=== PATIENT | male | born 1945 | race Caucasian/White ===

== ENCOUNTER → 2016-11-22 | Outpatient (CLI) | payer MEDICARE ==
[~2016-11-22] MED LIST: REGADENOSON 0.4 MG/5 ML SYRINGE IV ONE
--- NOTE | 2016-11-22 11:29 | EST ---
DATE OF SERVICE: 11/22/2016 AGE: 71Y SEX: M HT: 5'8" WT: 212 lbs. Lexiscan Cardiolite Stress Test *Heart Rate Blood Pressure *Rest: 67 Rest: 142/85 * *Max. Achieved: 90 Maximum BP: 150/75 85% PMHR: - 100% PMHR: - *METS: - INDICATIONS: Pre-surgical clearance. MEDICATIONS: Donepezil, Cialis. STRESS DATA: Pretesting physical examination showed a heart rate of 57, blood pressure is 142/85 mmHg. Baseline EKG showed sinus rhythm with a right bundle branch block; 0.4 mg of Lexiscan was given to patient over ( ) protocol. The max heart rate was 90 beats per minute and maximum pressure was 150/75 mmHg. Clinically, the did not have any symptoms and the EKG did not show any significant ST or T-wave abnormalities consistent with ischemia. CONCLUSION: 1. Nondiagnostic electrocardiogram stress testing in response to Lexiscan. 2. Please followup on the Cardiology portion of separate report from Radiology Department.
--- NOTE | 2016-11-22 12:08 | NM ---
EXAMINATION TYPE: NM stress Lexiscan cardiolite DATE OF EXAM: 11/22/2016 11:53 AM COMPARISON: NONE HISTORY: TECHNIQUE: After the intravenous administration of 10 mCi Tc 99m Sestamibi - Cardiolite resting SPEC T images acquired 45 minutes post injection. The patient received 0.4mg Lexiscan, 27.4 mCi Tc 99m Sestamibi - Stress images obtained [address] injection FINDINGS: There is thinning of the inferior wall of the left ventricle. This may be secondary to diap hragmatic attenuation or previous nontransmural infarct. There is no convincing inducible ischemic ch elicia. Ejection fraction is normal at 60%. IMPRESSION: I DO NOT SEE CONVINCING EVIDENCE OF INDUCIBLE ISCHEMIC CHANGE AT THIS TIME.
== END | disposition home or self-care (01) ==
LOC: RADNMMAIN 09:12
PROVIDERS: ATTEND Internal Medicine
DX: Z01.818 Encounter for other preprocedural examination (principal); I71.4 Abdominal aortic aneurysm, without rupture
CPT/HCPCS: 93017; 78452; A9500; J2785

== ENCOUNTER 2019-06-11 10:46 | Inpatient (IN) | payer MEDICARE ==
--- NOTE | 2019-06-11 11:29 | ED ---
General Adult HPI - General Chief complaint: Neuro Symptoms/Deficit Stated complaint: Fall, weakness Time Seen by Provider: 06/11/19 10:49 Source: patient, family, RN notes reviewed, old records reviewed (Records reviewed from [facility] that are somewhat limited. Partial blood work is reviewed. Results of computed tomography scan of the brain and cervical spine and chest x-ray are reviewed.) Mode of arrival: ambulatory Limitations: altered mental status - History of Present Illness Initial comments: Patient is a pleasant 73-year-old male presenting to the emergency Department as a transfer from [facility]. Patient does have mentioned with increased weakness and falls. Patient was evaluated there and he did speak to the admitting physician who recommended patient be transferred here for neurology evaluation. Patient is only oriented to self but very limited history. Family arrived shortly after and states patient has been aggressively weak and falling more. Patient is also been having shaking and more confused. Patient is reportedly on multiple medications and the question of medications could be causing some of the symptoms. - Related Data Home Medications Medication Instructions Recorded Confirmed Acetaminophen Tab [Tylenol Tab] 650 mg PO Q4H PRN 06/11/19 06/11/19 Cholecalciferol (Vitamin D3) 2,000 unit PO DAILY 06/11/19 06/11/19 [Vitamin D3] Cyanocobalamin (Vitamin B-12) 1,000 mcg PO DAILY 06/11/19 06/11/19 [Vitamin B-12] Divalproex Sodium [Depakote 250 mg PO BID 06/11/19 06/11/19 Sprinkle] Docusate [Colace] 100 mg PO BID 06/11/19 06/11/19 Haloperidol Oral Soln [Haldol Oral 2 - 4 mg PO DAILY 06/11/19 06/11/19 Soln] Magnesium Hydroxide [Milk of 2,400 mg PO HS PRN 06/11/19 06/11/19 Magnesia] Memantine HCl/Donepezil HCl 1 cap PO DAILY 06/11/19 06/11/19 [Namzaric 28 mg-10 mg Capsule] Mylanta 15 mg PO BID PRN 06/11/19 06/11/19 QUEtiapine [SEROquel] 25 mg PO DAILY PRN 06/11/19 06/11/19 Tamsulosin [Flomax] 0.8 mg PO DAILY 06/11/19 06/11/19 guaiFENesin SYRUP 100MG/5ML 10 mg PO Q6H PRN 06/11/19 06/11/19 [Robitussin] Allergies Allergy/AdvReac Type Severity Reaction Status Date / Time No Known Allergies Allergy Verified 06/11/19 11:24 Review of Systems ROS Statement: Those systems with pertinent positive or pertinent negative responses have been documented in the HPI. ROS Other: All systems not noted in ROS Statement are negative. Constitutional: Denies: fever Eyes: Denies: eye pain ENT: Denies: ear pain Respiratory: Denies: cough Cardiovascular: Denies: chest pain Endocrine: Denies: fatigue Gastrointestinal: Denies: abdominal pain Genitourinary: Denies: dysuria Musculoskeletal: Denies: back pain Skin: Denies: rash Neurological: Reports: as per HPI, weakness, confusion Past Medical History Past Medical History: Unable to Obtain, Atrial Fibrillation, Dementia, Hearing Disorder / Deafness, Memory Impairment, Osteoarthritis (OA), Sleep Apnea/CPAP/BIPAP History of Any Multi-Drug Resistant Organisms: Unobtainable Past Surgical History: Hernia Repair Additional Past Surgical History / Comment(s): nasel surg cardio version aaa repair Past Psychological History: Unable to Obtain Smoking Status: Former smoker Past Alcohol Use History: Unable to Obtain Past Drug Use History: Unable to Obtain General Exam Limitations: no limitations General appearance: alert, in no apparent distress Head exam: Present: other (Right forehead abrasion) Eye exam: Present: normal appearance, PERRL, EOMI. Absent: nystagmus ENT exam: Present: normal oropharynx Neck exam: Present: normal inspection Respiratory exam: Present: normal lung sounds bilaterally Cardiovascular Exam: Present: regular rate, normal rhythm GI/Abdominal exam: Present: soft. Absent: tenderness Extremities exam: Present: normal inspection Neurological exam: Present: alert, CN II-XII intact, other (Patient does have a resting tremor) Expanded Patient oriented to: Present: person. Absent: place, time Motor strength exam: RUE: 5, LUE: 5, RLE: 3, LLE: 3 Eye Response: (4) open spontaneously Motor Response: (6) obeys commands Verbal Response: (4) confused conversation Psychiatric exam: Present: normal affect, normal mood Skin exam: Present: normal color Course Vital Signs 06/11/19 10:54 Pulse Rate 92 Respiratory 22 Rate O2 Sat by Pulse 99 Oximetry EKG Findings - EKG Comments: EKG Findings:: Motion artifact present. Regular rhythm with a rate of 79. ND 186. QRS 146. QT 440. QTc 504. Left axis. Right bundle branch block. Left anterior fascicular block. LVH criteria. No acute ST change. Medical Decision Making - Medical Decision Making Case was discussed with Dr. Meraz who is familiar with this patient and will admit covering for Dr. Weiner. - Lab Data Result diagrams: 06/11/19 11:33 Lab Results 06/11/19 06/11/19 Range/Units 11:33 11:33 Sodium 140 (137-145) mmol/L Potassium 4.1 (3.5-5.1) mmol/L Chloride 109 H (98-107) mmol/L Carbon Dioxide 27 (22-30) mmol/L Anion Gap 4 mmol/L BUN 16 (9-20) mg/dL Creatinine 1.05 (0.66-1.25) mg/dL Est GFR (CKD-EPI)AfAm 82 (>60 ml/min/1.73 sqM) Est GFR (CKD-EPI)NonAf 71 (>60 ml/min/1.73 sqM) Glucose 100 H (74-99) mg/dL Plasma Lactic Acid Alejandro 1.1 (0.7-2.0) mmol/L Calcium 9.0 (8.4-10.2) mg/dL Phosphorus 2.7 (2.5-4.5) mg/dL Magnesium 2.2 (1.6-2.3) mg/dL Total Bilirubin 0.5 (0.2-1.3) mg/dL AST 18 (17-59) U/L ALT 19 L (21-72) U/L Alkaline Phosphatase 70 (38-126) U/L Creatine Kinase 79 (55-170) U/L Total Protein 6.1 L (6.3-8.2) g/dL Albumin 3.4 L (3.5-5.0) g/dL Disposition Clinical Impression: Weakness, Altered mental status Disposition: ADMITTED IP TO THIS HOSP Is patient prescribed a controlled substance at d/c from ED?: No Referrals: Marshall Arizmendi DO [Primary Care Provider] - 1-2 days Decision Time: 12:08
[2019-06-11 12:02] LABS: Albumin 3.4 g/dL (3.5-5.0); Magnesium 2.2 mg/dL (1.6-2.3); Phosphorus 2.7 mg/dL (2.5-4.5); Potassium 4.1 mmol/L (3.5-5.1); Total Bilirubin 0.5 mg/dL (0.2-1.3); Total Protein 6.1 g/dL (6.3-8.2)
[2019-06-11] MEDS ORDERED: NALOXONE 0.4 MG/ML 1 ML VIAL IV PRN (12:08)
[2019-06-11 12:14] LABS: Prothrombin Time 10.6 sec (9.0-12.0)
[2019-06-11] MEDS ORDERED: SODIUM CHLORIDE 0.9% 1,000 ML IV SCH (12:15)
[2019-06-11 12:18] LABS: T4, Free (Free Thyroxine) 1.5 ng/dL (0.78-2.19)
[2019-06-11] MEDS ORDERED: guaiFENesin SYRUP 100MG/5ML 200 MG/10 ML CUP PO PRN (16:23)
[2019-06-11] MEDS ORDERED: MAGNESIUM HYDROXIDE 2,400 MG/10 ML CUP PO PRN (16:23)
[2019-06-11] MEDS ORDERED: ACETAMINOPHEN TAB 325 MG TAB PO PRN (16:23)
[2019-06-11] MEDS ORDERED: QUEtiapine 25 MG TAB PO SCH ×2 (16:30→21:00)
[2019-06-11] MEDS ORDERED: HALOPERIDOL LACTATE 5 MG/ML 1 ML VIAL IM PRN (16:41)
--- NOTE | 2019-06-11 17:13 | P.HPIM ---
History of Present Illness H&P Date: 06/11/19 is a 73 years old male patient of Dr. Arizmendi with past medical history of A. fib, advanced dementia, osteoarthritis, sleep apnea who is currently residing in the assisted living facility was noted to be increased weakness associated with confusion and generalized weakness and tremors. According to the bedside patient has advanced dementia and started having behavioral issues at home involving episodes of agitation worsening confusion with episodes of incontinence both urine and fecal in the living area. Patient's was unable to take care of the patient at home and therefore was taken to an assisted living facility. According to the patient is not on any medication at home and was started on multiple psych medication while he was at this assisted living facility. is concerned about the medication patient's on that are worsening his symptoms. Patient was transferred from [facility] as there was no neurologist available. Earlier today patient had a fall and was found by the staff. He had the dresser fallen on him. Injury to his head and knee. Vitals evaluation with a temp of 97.2 blood pressure 102/61 CBC CMP lipase troponin and CK were negative and CT head was negative for bleed CT spine had no fractures chest x-ray showed no infiltrate. Neurology and psychiatry evaluation requested. Seroquel switched to nightly Haldol discontinued. Review of Systems Constitutional: Denies chills, Denies fever, Denies lethargy, Denies malaise, Denies poor appetite, Denies weakness, Denies weight loss Eyes: denies decreased vision, denies diplopia, denies discharge, denies pain Ears: deny: decreased hearing Ears, nose, mouth and throat: Denies dental pain, Denies headache, Denies nasal discharge, Denies nose pain Cardiovascular: Denies chest pain, Denies decreased exercise tolerance, Denies edema, Denies high blood pressure, Denies irregular heart beat, Denies palpitations, Denies paroxysmal nocturnal dyspnea, Denies rapid heart beat, Denies shortness of breath Respiratory: Denies congestion, Denies cough, Denies cough with sputum, Denies dyspnea, Denies home oxygen, Denies wheezing Gastrointestinal: Denies abdominal pain, Denies change in bowel habits, Denies coffee ground emesis, Denies early satiety, Denies excessive gas, Denies heartburn, Denies hematemesis, Denies hematochezia, Denies loss of appetite, Denies nausea, Denies vomiting Genitourinary: Denies dysuria, Denies flank pain, Denies kidney stones, Denies menorrhagia, Denies urgency, Denies urinary frequency Musculoskeletal: Denies gait dysfunction, Denies limitation of motion, Denies morning stiffness, Denies muscle cramps Integumentary: Multiple bruises involving the knee and forehead Neurological: Resting tremor noted weakness in lower extremity endorses balance difficulties, Denies change in speech, Denies double vision, endorses gait dysfunction, Denies loss of vision, endorses motor disturbance, Denies numbness, Denies paralysis, Denies paresthesias, Denies seizures Psychiatric: Denies anxiety, Denies depression endorses agitation or disorder Endocrine: Denies excessive sweating, Denies excessive thirst, Denies high blood sugars, Denies palpitations Hematologic/Lymphatic: Denies easy bruising, Denies lymphadenopathy Past Medical History Past Medical History: Unable to Obtain, Atrial Fibrillation, Dementia, Hearing Disorder / Deafness, Memory Impairment, Osteoarthritis (OA), Sleep Apnea/CPAP/BIPAP Additional Past Medical History / Comment(s): cardioversion History of Any Multi-Drug Resistant Organisms: Unobtainable Past Surgical History: Hernia Repair Additional Past Surgical History / Comment(s): nasel surg cardio version aaa repair Past Psychological History: Unable to Obtain Smoking Status: Former smoker Past Alcohol Use History: Unable to Obtain Past Drug Use History: Unable to Obtain Medications and Allergies Home Medications Medication Instructions Recorded Confirmed Type Acetaminophen Tab [Tylenol Tab] 650 mg PO Q4H PRN 06/11/19 06/11/19 History Cholecalciferol (Vitamin D3) 2,000 unit PO DAILY 06/11/19 06/11/19 History [Vitamin D3] Cyanocobalamin (Vitamin B-12) 1,000 mcg PO DAILY 06/11/19 06/11/19 History [Vitamin B-12] Divalproex Sodium [Depakote 250 mg PO BID 06/11/19 06/11/19 History Sprinkle] Docusate [Colace] 100 mg PO BID 06/11/19 06/11/19 History Haloperidol Oral Soln [Haldol Oral 2 - 4 mg PO DAILY 06/11/19 06/11/19 History Soln] Magnesium Hydroxide [Milk of 2,400 mg PO HS PRN 06/11/19 06/11/19 History Magnesia] Memantine HCl/Donepezil HCl 1 cap PO DAILY 06/11/19 06/11/19 History [Namzaric 28 mg-10 mg Capsule] Mylanta 15 mg PO BID PRN 06/11/19 06/11/19 History QUEtiapine [SEROquel] 25 mg PO DAILY PRN 06/11/19 06/11/19 History Tamsulosin [Flomax] 0.8 mg PO DAILY 06/11/19 06/11/19 History guaiFENesin SYRUP 100MG/5ML 10 mg PO Q6H PRN 06/11/19 06/11/19 History [Robitussin] Allergies Allergy/AdvReac Type Severity Reaction Status Date / Time aspirin Allergy Unknown Verified 06/11/19 16:53 Physical Exam Vitals: Vital Signs Temp Pulse Pulse Resp BP BP Pulse Ox 06/11/19 14:43 98.8 F 70 18 130/60 95 06/11/19 14:28 98.1 F 75 18 126/84 95 06/11/19 13:59 75 18 126/84 95 06/11/19 12:58 98.1 F 84 18 114/85 94 L 06/11/19 10:54 92 22 99 Intake and Output 06/11/19 06/11/19 06/11/19 06:59 14:59 22:59 Other: Weight 99.79 kg - Constitutional General appearance un cooperative appears anxious, no acute distress, obese - EENT Eyes: anicteric sclerae, PERRLA, normal appearance ENT: hearing grossly normal for had has a bruise in the right - Neck Neck: no lymphadenopathy, normal ROM, no other, no rigidity, no stridor, no thyromegaly - Respiratory Respiratory: bilateral: CTA, negative: diminished, dullness, rales, rhonchi - Cardiovascular Rhythm: regular Heart sounds: normal: S1, S2 Abnormal Heart Sounds: no systolic murmur, no diastolic murmur, no rub, no S3 Gallop, no S4 Gallop, no click, no other - Gastrointestinal General gastrointestinal: normal bowel sounds, soft - Integumentary Integumentary: Bruise on forehead and right knee - Neurologic Neurologic: Resting tremor noted with pain rolling movement CNII-XII intact no sensory deficit coordination could not be assessed gait cannot be assessed - Musculoskeletal Musculoskeletal: Bilateral lower extremity weakness 3+/5 - Psychiatric Psychiatric: Appears anxious unable to express his concerns Results CBC & Chem 7: 06/11/19 11:33 Labs: Abnormal Lab Results - Last 24 Hours (Table) 06/11/19 Range/Units 11:33 Chloride 109 H (98-107) mmol/L Glucose 100 H (74-99) mg/dL ALT 19 L (21-72) U/L Total Protein 6.1 L (6.3-8.2) g/dL Albumin 3.4 L (3.5-5.0) g/dL TSH 0.399 L (0.465-4.680) mIU/L Thrombosis Risk Factor Assmnt - DVT/VTE Prophylaxis DVT/VTE Prophylaxis: Pharmacologic Prophylaxis ordered - Choose All That Apply Each Factor Represents 1 point: Obesity (BMI >25), Swollen legs (current) Each Risk Factor Represents 2 Points: Patient confined to bed Thrombosis Risk Factor Assessment Total Risk Factor Score: 4 Thrombosis Risk Factor Assessment Level: Moderate Risk Assessment and Plan Plan: #1 change in mental status with baseline advanced dementia with behavioral disorder. Unclear patient has underlying Parkinson. Computed tomography scan obtained at the other hospital was negative for any stroke. Computed tomography scan spine was negative. Neurology and psychiatry consulted for management of the antipsychotic since patient is drowsy sleepy on the medication and not able to conduct his daily activity according to the bedside and hold Haldol stopped Depakote continue Seroquel at bedtime and Namenda 10 mg twice a day. Aricept 10 mg by mouth daily #2 history of atrial fibrillation patient not on any blood thinners. Patient is a high risk for fall and hold anticoagulation. He has a history of ablation #3 a pH continue Flomax 0.8 mg by mouth daily #4 CODE STATUS DO NOT RESUSCITATE #5 DVT prophylaxis with heparin subcu every 12
[2019-06-11] MEDS: DONEPEZIL 10 MG TAB PO SCH (18:16)
--- NOTE | 2019-06-11 19:42 | P.CNNES ---
History of Present Illness Consult date: 06/11/19 Reason for Consult: Altered mental status Chief complaint: Altered mental status History of Present Illness: REFERRING PHYSICIAN: Dr. Nehemiah Bonilla HISTORY OF PRESENT ILLNESS: Thank you for allowing me to evaluate Mr. Ike Pascal. Mr. Pascal is a 73-year-old man with past medical history of atrial fibrillation, Alzheimer's disease, hearing difficulty, memory impairment, osteoarthritis, sleep apnea, presents to [facility] as a transfer from [facility] for increased weakness and falls. Family stated that patient has been much more weak and falling more frequently. Patient is also having shaking him more confused.consulting Neurology for AMS. is at bedside. states that patient has been having rapidly declining Alzheimer's disease, which patient was first diagnosed with 4 years ago. Patient was able to walk about half of a block prior to admission to a caretaking facility, but he has gotten increasingly weaker where he's able to walk about 6-8 feet on his own. This morning, patient was walking on his own in his room, while standing next to a dresser, fell while holding onto the dresser, and the TV which was on top of the dresser fell on him. Patient did not lose consciousness as far as the is aware, but patient was found by facility personnel on the floor. states that about 2 months ago, patient was taken to [facility] for which they thought was a UTI, and then patient was discharged to a caretaking facility about 1.5 months ago. Per , at the time of initial admission to the facility, patient was on 3 meds, tamsulosin, Vitamin B12 and memantine, but the careatkers at the facilities added multiple medications such as depakote and haldol for agitation along with seroquel PRN. On review of patient's MAR from the facility, patient has been taking depakote 250mg BID and haldol daily along with seroquel PRN (not given today). also provides information about the patient's daughter, who was on depakote previously for her bipolar disorder, and had issues with tremor. also states that patient is sensitive to m edication, e.g. patient became very sleepy with aspirin. Per , about 3 years ago, patient was attempting to quit smoking, so he had a nicotine patch on, but he decided to smoke and as a result, had a.fib and needed to be cardioverted. After patient came out of anesthesia, patient was as if he was back in [place] during the war, for which he may have had PTSD. denies patient ever having any psychiatric issues. He was a very loving , who never laid hands on her. For the ?diagnosis of atrial fibrillation, states that patient was on coumadin for about 6 months and was told patient did not need to be on blood thinning medication any longer. Patient has a neurologist at [facility], last seen in October 2018. Patient sees neurologist about once a year. PAST MEDICAL HISTORY: Atrial fibrillation, Alzheimer's disease (patient underwent PET imaging), heari ng difficulty, memory impairment, osteoarthritis, sleep apnea PAST SURGICAL HISTORY: AAA repair, hernia repair,? Cardioversion HOME MEDICATIONS: Tamsulosin, the , Haldol daily, Colace, Depakote 250 mg twice a day, Seroquel when necessary, Robitussin when necessary, Tylenol when necessary, vitamin D, vitamin B12 ALLERGIES: NO KNOWN DRUG ALLERGIES. SOCIAL HISTORY: Former smoker. REVIEW OF SYSTEMS: The 14 systems are reviewed and no additional points are identified compared to the review of systems documented history and physical PHYSICAL EXAMINATION: VITAL SIGNS: Temperature 98.8 pulse rate 70 respiratory rate 18 blood pressure 130/60 O2 saturation 95% on room air GEN.: NAD, grumpy, at times becomes verbally abusive HEENT: NCAT, sclera without icterus NECK: Supple SKIN AND EXTREMITIES: Warm to touch, no edema NEURO: MENTAL STATUS: Patient alert and oriented to self only. When asked to provide 's name, patient could not answer. Speech is grossly fluent, says "one" when asked to name thumb. Unable to name glasses or television. Following some commands upon persistent request. No neglect. CRANIAL NERVES II THROUGH XII: II: Pupils are equal and reactive to light symmetrically. Blinks to threat. III, IV, : No ptosis. Extraocular movements grossly full. VII. No clear facial asymmetry. IX, X: Symmetric palate el evation. XI: Shoulder shrug intact. XII: Tongue midline without fasciculation or atrophy. MOTOR: Increased tone in all 4 extremities but difficult to tell whether it's due to patient's lack of cooperation and understanding. Antigravity with no drift in b/l UE. Patient wiggles his toes bilaterally but patient very stiff when I try to passively move his legs and patient also not bending his knees or moving feet to noxious stimuli SENSORY: Intact to light touch and pain in all 4 extremities. REFLEXES: 2+ throughout. Toes are very sensitive to touch, saying cuss words upon touch COORDINATION/GAIT: deferred due to patient's lack of understanding and cooperation. DIAGNOSTIC TESTING: LABORATORY: Sodium 140 potassium 4.1 chloride 109 BUN 16 creatinine 1.05 bicarb 27 glucose 100 AST 18 ALT 19 TSH 0.399 free T4 1 0.50 IMAGING: No imaging available at this time. ASSESSMENT: Mr. Pascal is a 73-year-old man with past medical history of atrial fibrillation, Alzheimer's disease, hearing difficulty, memory impairment, osteoa rthritis, sleep apnea, presents to [facility] as a transfer from [facility] for increased weakness and falls. Patient with advanced Alzheimer's disease for which patient needed to be placed in a nursing facility. Patient's last MRI imaging done more than 4 years ago. Patient has had multiple new medications added to his regimen, and per , patient most likely has not been sleeping well at the facility. Depakote, which was added at the facility, could cause insomnia, which could worsen his dementia and cause delirium. Patient with no apparent focal neurological deficit, but patient with significant risk factors for stroke, e.g. atrial fibrillation and former smoker. Patient is also not on any antiplatelet or anticoagulation therapy. Will obtain MRI brain w/o contrast for now and TTE. If MRI brain with signs of stroke, will obtain CTA Head and Neck. RECOMMENDATIONS: 1. Decrease depakote dose to 250mg qday with plan to taper down further and discontinue completely 2. MRI brain w/o contrast 3. Continue memantine 4. Lab: pending A1C and FLP; TSH 0.399 fT4 0.50 5. Transthoracic Echocardiogram 6. Sleep hygiene for delirium precaution Past Medical History Past Medical History: Unable to Obtain, Atrial Fibrillation, Dementia, Hearing Disorder / Deafness, Memory Impairment, Osteoarthritis (OA), Sleep Apnea/CPAP/BIPAP History of Any Multi-Drug Resistant Organisms: Unobtainable Past Surgical History: Hernia Repair Additional Past Surgical History / Comment(s): nasel surg cardio version aaa repair Past Psychological History: Unable to Obtain Smoking Status: Former smoker Past Alcohol Use History: Unable to Obtain Past Drug Use History: Unable to Obtain Medications and Allergies Home Medications Medication Instructions Recorded Confirmed Type Acetaminophen Tab [Tylenol Tab] 650 mg PO Q4H PRN 06/11/19 06/11/19 History Cholecalciferol (Vitamin D3) 2,000 unit PO DAILY 06/11/19 06/11/19 History [Vitamin D3] Cyanocobalamin (Vitamin B-12) 1,000 mcg PO DAILY 06/11/19 06/11/19 History [Vitamin B-12] Divalproex Sodium [Depakote 250 mg PO BID 06/11/19 06/11/19 History Sprinkle] Docusate [Colace] 100 mg PO BID 06/11/19 06/11/19 History Haloperidol Oral Soln [Haldol Oral 2 - 4 mg PO DAILY 06/11/19 06/11/19 History Soln] Magnesium Hydroxide [Milk of 2,400 mg PO HS PRN 06/11/19 06/11/19 History Magnesia] Memantine HCl/Donepezil HCl 1 cap PO DAILY 06/11/19 06/11/19 History [Namzaric 28 mg-10 mg Capsule] Mylanta 15 mg PO BID PRN 06/11/19 06/11/19 History QUEtiapine [SEROquel] 25 mg PO DAILY PRN 06/11/19 06/11/19 History Tamsulosin [Flomax] 0.8 mg PO DAILY 06/11/19 06/11/19 History guaiFENesin SYRUP 100MG/5ML 10 mg PO Q6H PRN 06/11/19 06/11/19 History [Robitussin] Allergies Allergy/AdvReac Type Severity Reaction Status Date / Time aspirin Allergy Unknown Verified 06/11/19 16:53 Physical Examination - Vital Signs Vital Signs: Vital Signs Temp Pulse Pulse Resp BP BP Pulse Ox 06/11/19 14:43 98.8 F 70 18 130/60 95 06/11/19 14:28 98.1 F 75 18 126/84 95 06/11/19 13:59 75 18 126/84 95 06/11/19 12:58 98.1 F 84 18 114/85 94 L 06/11/19 10:54 92 22 99 Intake and Output 06/11/19 06/11/19 06/11/19 06:59 14:59 22:59 Other: Weight 99.79 kg Results - Laboratory Findings CBC and BMP: 06/11/19 11:33 Abnormal Lab Findings: Abnormal Labs 06/11/19 11:33 Chloride 109 H Glucose 100 H ALT 19 L Total Protein 6.1 L Albumin 3.4 L TSH 0.399 L
[2019-06-11] MEDS: HEPARIN SODIUM,PORCINE 5,000 UNIT/ML 1 ML VIAL SQ SCH (20:53)
[2019-06-11] MEDS: MEMANTINE 10 MG TAB PO SCH (20:53)
[2019-06-11] MEDS: DOCUSATE 100 MG CAP PO SCH (20:53)
[2019-06-11] MEDS ORDERED: DIVALPROEX SPRINKLE 125 MG CAP.SPRINK PO SCH (21:00)
[2019-06-11] MEDS ORDERED: FUROSEMIDE 10 MG/ML 4 ML VIAL IV STA (22:58)
--- NOTE | 2019-06-12 00:11 | XR ---
INDICATION: Aspiration COMPARISON: CXR 06/11/19 at 0820 hours FINDINGS: Single frontal view of the chest is provided. Cardiac mediastinal fluid is stable. Pulmonary vascularity is normal. There are new linear opacities in the medial left lung base. There is new blunting of the left costophrenic angle. The right lung is clear. There is no pneumothorax. Regional skeleton appears intact. IMPRESSION: 1. New left basilar opacities may represent mild atelectasis or aspiration. Possible small left pleural effusion.
[2019-06-12] MEDS: DOCUSATE 100 MG CAP PO SCH ×2 (07:47→22:07)
[2019-06-12] MEDS: MEMANTINE 10 MG TAB PO SCH ×2 (07:47→22:08)
[2019-06-12] MEDS: TAMSULOSIN 0.4 MG CAP.ER.24H PO SCH (07:47)
[2019-06-12] MEDS: CHOLECALCIFEROL 1,000 UNIT TAB PO SCH (07:47)
[2019-06-12] MEDS: DONEPEZIL 10 MG TAB PO SCH (07:47)
[2019-06-12] MEDS: CYANOCOBALAMIN 500 MCG TAB PO SCH (07:47)
[2019-06-12 08:01] LABS: Calcium 8.8 mg/dL (8.4-10.2); Potassium 3.9 mmol/L (3.5-5.1)
[2019-06-12] MEDS: HEPARIN SODIUM,PORCINE 5,000 UNIT/ML 1 ML VIAL SQ SCH ×2 (08:13→21:36)
[2019-06-12 08:28] LABS: Basophils % (A) 1 %; Eosinophils # (A) 0.2 k/uL (0-0.7); Eosinophils % (A) 2 %; HCT 38.9 % (39.0-53.0); HGB 12.8 gm/dL (13.0-17.5); Lymphocytes # (A) 0.7 k/uL (1.0-4.8); Lymphocytes % (A) 11 %; MCH 30.5 pg (25.0-35.0); MCV 92.5 fL (80.0-100.0); Mean Platelet Volume 8.3; Monocytes % (A) 15 %; Neutrophils # (A) 4.6 k/uL (1.3-7.7); Neutrophils % (A) 70 %; Platelet Count 157 k/uL (150-450); RBC 4.21 m/uL (4.30-5.90); RDW 14.8 % (11.5-15.5); WBC 6.6 k/uL (3.8-10.6)
[2019-06-12] MEDS ORDERED: DIVALPROEX 250 MG TABLET.DR PO SCH (09:45)
[2019-06-12 10:35] VITALS: BMI 28.2
--- NOTE | 2019-06-12 14:16 | P.PN ---
Subjective Progress Note Date: 06/12/19 This is a 73-year-old male patient of Dr. Arizmendi with past medical history of A. fib, advanced dementia, osteoarthritis, sleep apnea who is currently residing in the assisted living facility was noted to be increased weakness associated with confusion and generalized weakness and tremors. According to the bedside patient has advanced dementia and started having behavioral issues at home involving episodes of agitation worsening confusion with episodes of incontinence both urine and fecal in the living area. Patient's was unable to take care of the patient at home and therefore was taken to an assisted living facility. According to the patient is not on any medication at home and was started on multiple psych medication while he was at this assisted living facility. is concerned about the medication patient's on that are worsening his symptoms. Patient was transferred from [facility] as there was no neurologist available. Earlier today patient had a fall and was found by the staff. He had the dresser fallen on him. Injury to his head and knee. Vitals evaluation with a temp of 97.2 blood pressure 102/61 CBC CMP lipase troponin and CK were negative and CT head was negative for bleed CT spine had no fractures chest x-ray showed no infiltrate. Neurology and psychiatry evaluation requested. Seroquel switched to nightly Haldol discontinued. 06/12: The patient has been afebrile, heart rate 68, blood pressure 111/58, pulse ox 96% on 2 L nasal cannula. WBC is normal at 6.6, hemoglobin 12.8, platelet count 157, electrolytes and renal function within normal limits, blood sugar 102. Chest x-ray reveals new left basilar opacities may represent mild atelect asis or aspiration. Possible small left pleural effusion. Patient has been seen by neurologist with recommendations to taper her Depakote and discontinue it completely. Patient's is refusing to allow this to be given and dosing was discussed with pharmacy it was determined that this was safe to discontinue at this point as patient does not have a seizure history. Seroquel will be changed to Risperdal 0.5 mg at bedtime. Discharge plan will be to return to [facility] with [facility] in place. Objective - Vital Signs Vital signs: Vital Signs Temp 98.2 F 06/12/19 12:08 Pulse 68 06/12/19 12:08 Resp 19 06/12/19 12:08 BP 111/58 06/12/19 12:08 Pulse Ox 96 06/12/19 12:08 Intake & Output 06/11/19 06/12/19 06/12/19 18:59 06:59 18:59 Intake Total 0 Balance 0 Weight 99.79 kg 94.5 kg 94.5 kg Intake: Oral 0 Other: Voiding Method Diaper Diaper Diaper Incontinent Incontinent Incontinent # Voids 4 2 - Exam Review of systems: Cannot be obtained due to patient's mental status - Constitutional General appearance un cooperative appears anxious, no acute distress, obese - EENT Eyes: anicteric sclerae, PERRLA, normal appearance ENT: hearing grossly normal for had has a bruise in the right - Neck Neck: no lymphadenopathy, normal ROM, no other, no rigidity, no stridor, no thyromegaly - Respiratory Respiratory: bilateral: CTA, negative: diminished, dullness, rales, rhonchi - Cardiovascular Rhythm: regular Heart sounds: normal: S1, S2 Abnormal Heart Sounds: no systolic murmur, no diastolic murmur, no rub, no S3 Gallop, no S4 Gallop, no click, no other - Gastrointestinal General gastrointestinal: normal bowel sounds, soft - Integumentary Integumentary: Bruise on forehead and right knee - Neurologic Neurologic: Resting tremor noted with pain rolling movement CNII-XII intact no sensory deficit coordination could not be assessed gait cannot be assessed - Musculoskeletal Musculoskeletal: Bilateral lower extremity weakness 3+/5 - Psychiatric Psychiatric: Appears anxious unable to express his concerns, alert and oriented 1, generalized weakness - Labs CBC & Chem 7: 06/12/19 07:22 06/12/19 07:22 Labs: Abnormal Lab Results - Last 24 Hours (Table) 06/12/19 06/12/19 Range/Units 07:22 07:22 RBC 4.21 L (4.30-5.90) m/uL Hgb 12.8 L (13.0-17.5) gm/dL Hct 38.9 L (39.0-53.0) % Lymphocytes # 0.7 L (1.0-4.8) k/uL Glucose 102 H (74-99) mg/dL LDL Cholesterol, Calc 127 H (0-99) mg/dL HDL Cholesterol 34 L (40-60) mg/dL Assessment and Plan Plan: 1. Metabolic encephalopathy possibly secondary to delirium from dementia and insomnia secondary to Depakote. Neurology consult appreciated. Medication adjustments will be made and Depakote will be discontinued, Seroquel discontinued, start Risperdal 0.5 mg at bedtime and Haldol as needed. MRI of the brain and echocardiogram pending 2. Atrial fibrillation, chronic, not on anticoagulation due to risk for falls. 3. Benign prostatic hypertrophy. Continue Flomax 0.8 mg daily. 4. Alzheimer's dementia. Continue Aricept 10 mg daily, Namenda 10 mg twice daily. 5. History of obstructive sleep apnea. 6. GI prophylaxis. Pepcid. 7. DVT prophylaxis. Lovenox. 8. Stage II decubitus ulcer right buttocks, abrasion right scalp, left hand, all present on admission.. Discharge plan: Return to [facility] with [facility]. Impression and plan of care have been directed as dictated by the signing physician. Tamica Iraheta nurse practitioner acting as scribe for signing physician.
--- NOTE | 2019-06-12 15:02 | P.CN ---
Psychiatric Consult - . 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 HISTORY OF PRESENT ILLNESS: The patient was brought to the hospital for concerns of altered mental status and generalized weakness. As per ED note patient was experiencing an increase in tremors in his hands and feet and as per who states the patient has had some agitation and behavioral issues at home and has been started on several psychiatric medications in his assisted living home. As per states that since being decreased on his Depakote his tremors have improved however patient was sleeping throughout the day. states that patient was transferred to the assisted living home 1.5 months ago and she claims that he has decompensated since then. also informed advertising copywriter that patient got up confused one night and wandered over to a dresser and knocked over a TV falling on him. As per nurse caring for patient, patient has been sleeping all day and has not been agitated. Nurses also concerned patient mainly aspirating. Psychiatry was consulted for altered mental status along with generalized weakness. Scanner Operator saw patient in the room and patient appeared to be somnolent however was arousable to touch however did not follow most commands and was not able to participate with interview. Patient did not answer questions for orientation or her fund of knowledge. Patient did however react and acknowledge his at the side of the bed. PAST PSYCHIATRIC HISTORY: Patient does not have a psychiatric history, has never been admitted to a psych hospital before followed up with a psychiatrist. Patient does not have any history of a suicide attempt. Patient has been started on several different psychiatric medications at his assisted living home including Aricept, Risperdal, Namenda, Depakote, Haldol. PAST MEDICAL HISTORY: History of dementia, atrial fibrillation, osteoarthritis, obstructive sleep apnea. ALLERGIES: Aspirin. CHEMICAL DEPENDENCY HISTORY: denies this.. FAMILY PSYCHIATRIC/SUBSTANCE USE HISTORY: As per , daughter has bipolar disorder. SOCIAL HISTORY: Patient is an ex-marine, he graduated from high school and is currently and has 3 kids and lives in an assisted-living home. MENTAL STATUS EXAM: General Appearance: Patient appears to be stated age is somnolent, pleasant. P atient has fair hygiene and fair grooming. Patient appears to be frail Behavior: Patient is calmly lying in bed without any agitated behavior. Patient is somnolent and difficult to arouse. Speech: Patient's speech is fluent and nonpressured. Mood/Affect: Unknown mood, affect is congruent and constricted Suicidality/Homicidality: Unable to assess for suicidality or homicidality. Perceptions: Unable to assess for auditory or visual hallucinations. Though content/process: Patient is limited in his engagement with conversation as he is too somnolent. Memory and concentration: AOX1, too somnolent to participate in cognitive/memory exam Judgment and insight: Poor IMPRESSIONS: Delirium likely etiology toxic metabolic History of dementia PLAN: -At this time patient patient does NOT meet criteria for inpatient psychiatric admission. -Patient DOES NOT have decision making capacity at this time and is unable to reason through and communicate/appreciate the risks, benefits and alternatives to treatment. -Delirium precautions recommended with patient including - avoiding use of narcotics and GUIDE DELEGATE sedatives, limit anticholinergic medications when possible, frequent re-orientation, minimize use of restraints, open window shades during the day and close them at night -Would recommend the following medication changes/additions: Will discontinue Depakote at this time as it may be contributing to tremors and sedation. We will change Risperdal to 0.25 daily at bedtime when necessary for agitation only. -Psychiatry will sign off at this point Thank you for the consult
--- NOTE | 2019-06-12 17:08 | MR ---
EXAMINATION TYPE: MR brain wo con DATE OF EXAM: 06/12/2019 COMPARISON: CT 06/11/2019 HISTORY: Generalized weakness, atrial fibrillation, increased AMS and weakness TECHNIQUE: Standard multiplanar, multisequence MRI departmental protocol. Diffusion weighted imaging was performed. FINDINGS: There is no restricted diffusion to suggest acute or subacute infarction. There is no intra cranial hemorrhage. No intracranial mass or mass effect. No focal encephalomalacia to suggest remote macrovascular infarction. The ventricular system is mildly more prominent than the sulcal pattern and cisterns, a nonspecific f inding which can correlate with a clinical diagnosis of normal pressure hydrocephalus. The middle ear cavities and mastoid sinus air cells and paranasal sinuses are clear, except for minim al dependent T2 hyperintense fluid within the left maxillary sinus. Orbits are unremarkable. IMPRESSION: 1. No evidence acute or subacute process. 2. However, mild panventriculomegaly pattern noted.
[2019-06-12 19:01] LABS: Hemoglobin A1C 5.9 % (4.0-6.0)
[2019-06-12] MEDS ORDERED: risperiDONE 0.25 MG TAB PO PRN (21:00)
[2019-06-12] MEDS ORDERED: risperiDONE 0.5 MG TAB PO SCH (21:00)
[2019-06-13] MEDS: CHOLECALCIFEROL 1,000 UNIT TAB PO SCH (07:38)
[2019-06-13] MEDS: MEMANTINE 10 MG TAB PO SCH (07:38)
[2019-06-13] MEDS: DOCUSATE 100 MG CAP PO SCH ×2 (07:38→20:03)
[2019-06-13] MEDS: CYANOCOBALAMIN 500 MCG TAB PO SCH (07:38)
[2019-06-13] MEDS: DONEPEZIL 10 MG TAB PO SCH (07:38)
[2019-06-13] MEDS: TAMSULOSIN 0.4 MG CAP.ER.24H PO SCH (07:39)
[2019-06-13] MEDS: HEPARIN SODIUM,PORCINE 5,000 UNIT/ML 1 ML VIAL SQ SCH ×2 (08:56→20:03)
--- NOTE | 2019-06-13 09:29 | P.DS ---
Providers Date of admission: 06/11/19 12:08 Expected date of discharge: 06/14/19 Attending physician: Noah Barajas MD Consults: 06/11/19 12:10 Consult Physician Urgent Consulting Provider: Laron Gu Consult Reason/Comments: ams, gen weakness Do you want consulting provider notified?: Yes Primary care physician: [facility] Course: This is a 73-year-old male patient of Dr. Arizmendi with past medical history of A. fib, advanced dementia, osteoarthritis, sleep apnea who is currently residing in the assisted living facility was noted to be increased weakness associated with confusion and generalized weakness and tremors. According to the bedside patient has advanced dementia and started having behavioral issues at home involving episodes of agitation worsening confusion with episodes of incontinence both urine and fecal in the living area. Patient's was unable to take care of the patient at home and therefore was taken to an assisted living facility. According to the patient is not on any medication at home and was started on multiple psych medication while he was at this assisted living facility. is concerned about the medication patient's on that are worsening his symptoms. Patient was transferred from [facility] as there was no neurologist available. Earlier today patient had a fall and was found by the staff. He had the dresser fallen on him. Injury to his head and knee. Vitals evaluation with a temp of 97.2 blood pressure 102/61 CBC CMP lipase troponin and CK were negative and CT head was negative for bleed CT spine had no fractures chest x-ray showed no infiltrate. Neurology and psychiatry evaluation requested. Seroquel switched to nightly Haldol discontinued. 06/12: The patient has been afebrile, heart rate 68, blood pressure 111/58, pulse ox 96% on 2 L nasal cannula. WBC is normal at 6.6, hemoglobin 12.8, platelet count 157, electrolytes and renal function within normal limits, blood sugar 102. Chest x-ray reveals new left basilar opacities may represent mild atelectasis or aspiration. Possible small left pleural effusion. Patient has been seen by neurologist with recommendations to taper her Depakote and discontinue it completely. Patient's is refusing to allow this to be given and dosing was discussed with pharmacy it was determined that this was safe to discontinue at this point as patient does not have a seizure history. Seroquel will be changed to Risperdal 0.5 mg at bedtime. Discharge plan will be to return to [facility] with [facility] in place. 06/13: MRI of the brain showed no evidence of acute or subacute process. Mild panventriculomegaly pattern noted. Patient has been evaluated by psychiatry for delirium likely toxic metabolic, history of dementia. He recommended avoiding narcotics, OPTIONS ADVISOR sedatives, limit anticholinergic medications when possible, frequent reorientation, minimize use of restraints, open window shades during the day and close at night. Depakote discontinued as it may be contributing to tremors and sedation. Risperdal was changed to 0.25 daily at bedtime when necessary for agitation only and psychiatry has signed off. Discussed patient's condition in detail with his son. We will also discontinue Aricept and Namenda. Patient failed swallow evaluation is currently nothing by mouth with plan for reevaluation in the morning and possible modified barium swallow. The patient's son relates that since patient has been at the [facility] for about 2-3 months, he has had continuous decline in his condition. He is unable to walk with a walker and unable to complete his ADLs. Patient will require wheelchair. He also has significant tremor that was initially thought to be related to medication effect, we didn't discontinue Depakote and patient continues to have tremor which is most likely secondary to dementia. We will plan for monitoring overnight and speech will reevaluate swallowing. Probable discharge tomorrow. 06/14: Patient is more alert today. He did undergo modified barium swallow and passed with recommendations for chopped diet and supervision. The patient did have some confusion last evening and Risperdal was given. Patient pulled out his IV. He did not fall sleep until 4 AM. Patient's is at the bedside and she agrees that he is much improved with current medications. We will plan to discharge home today back to [facility] in stable condition. Discharge diagnoses: 1. Metabolic encephalopathy possibly secondary to delirium from dementia and insomnia secondary to Depakote. 2. Atrial fibrillation, chronic, not on anticoagulation due to risk for falls. 3. Benign prostatic hypertrophy. 4. Alzheimer's dementia. 5. History of obstructive sleep apnea. 6. Stage II decubitus ulcer right buttocks, abrasion right scalp, left hand, all present on admission. Discharge plan: Return to [facility] with [facility]. Impression and plan of care have been directed as dictated by the signing physician. Tamica Iraheta nurse practitioner acting as scribe for signing physician. Patient Condition at Discharge: Good Plan - Discharge Summary Discharge Rx Participant: No New Discharge Prescriptions: New risperiDONE [RisperDAL] 0.25 mg PO HS PRN #30 tab PRN Reason: Agitation Continue Tamsulosin [Flomax] 0.8 mg PO DAILY Docusate [Colace] 100 mg PO BID guaiFENesin SYRUP 100MG/5ML [Robitussin] 10 mg PO Q6H PRN PRN Reason: Cough Acetaminophen Tab [Tylenol] 650 mg PO Q4H PRN PRN Reason: Pain Magnesium Hydroxide [Milk of Magnesia] 2,400 mg PO HS PRN PRN Reason: Constipation Mylanta 15 mg PO BID PRN PRN Reason: Heartburn Cholecalciferol (Vitamin D3) [Vitamin D3] 2,000 unit PO DAILY Cyanocobalamin (Vitamin B-12) [Vitamin B-12] 1,000 mcg PO DAILY Discontinued Memantine HCl/Donepezil HCl [Namzaric 28 mg-10 mg Capsule] 1 cap PO DAILY Haloperidol Oral Soln [Haldol Oral Soln] 2 - 4 mg PO DAILY Divalproex Sodium [Depakote Sprinkle] 250 mg PO BID QUEtiapine [SEROquel] 25 mg PO DAILY PRN PRN Reason: depression Discharge Medication List Acetaminophen Tab [Tylenol] 650 mg PO Q4H PRN 06/11/19 [History] Cholecalciferol (Vitamin D3) [Vitamin D3] 2,000 unit PO DAILY 06/11/19 [History] Cyanocobalamin (Vitamin B-12) [Vitamin B-12] 1,000 mcg PO DAILY 06/11/19 [History] Docusate [Colace] 100 mg PO BID 06/11/19 [History] Magnesium Hydroxide [Milk of Magnesia] 2,400 mg PO HS PRN 06/11/19 [History] Mylanta 15 mg PO BID PRN 06/11/19 [History] Tamsulosin [Flomax] 0.8 mg PO DAILY 06/11/19 [History] guaiFENesin SYRUP 100MG/5ML [Robitussin] 10 mg PO Q6H PRN 06/11/19 [History] risperiDONE [RisperDAL] 0.25 mg PO HS PRN #30 tab 06/13/19 [Rx] Follow up Appointment(s)/Referral(s): [facility], [NON-STAFF] - 1-2 Days Marshall Arizmendi DO [Primary Care Provider] - 1 Week (visiting physicians will see him at home.) Activity/Diet/Wound Care/Special Instructions: Melisa Norman [facility] Diet recomendations per Speech Therapy: 1:1 feed, chopped texture, thin liquids
[2019-06-13] MEDS: SODIUM CHLORIDE 0.9% 1,000 ML IV SCH (12:02)
--- NOTE | 2019-06-13 15:08 | P.PN ---
Subjective Progress Note Date: 06/13/19 This is a 73-year-old male patient of Dr. Arizmendi with past medical history of A. fib, advanced dementia, osteoarthritis, sleep apnea who is currently residing in the assisted living facility was noted to be increased weakness associated with confusion and generalized weakness and tremors. According to the bedside patient has advanced dementia and started having behavioral issues at home involving episodes of agitation worsening confusion with episodes of incontinence both urine and fecal in the living area. Patient's was unable to take care of the patient at home and therefore was taken to an assisted living facility. According to the patient is not on any medication at home and was started on multiple psych medication while he was at this assisted living facility. is concerned about the medication patient's on that are worsening his symptoms. Patient was transferred from [facility] as there was no neurologist available. Earlier today patient had a fall and was found by the staff. He had the dresser fallen on him. Injury to his head and knee. Vitals evaluation with a temp of 97.2 blood pressure 102/61 CBC CMP lipase troponin and CK were negative and CT head was negative for bleed CT spine had no fractures chest x-ray showed no infiltrate. Neurology and psychiatry evaluation requested. Seroquel switched to nightly Haldol discontinued. 06/12: The patient has been afebrile, heart rate 68, blood pressure 111/58, pulse ox 96% on 2 L nasal cannula. WBC is normal at 6.6, hemoglobin 12.8, platelet count 157, electrolytes and renal function within normal limits, blood sugar 102. Chest x-ray reveals new left basilar opacities may represent mild atelect asis or aspiration. Possible small left pleural effusion. Patient has been seen by neurologist with recommendations to taper her Depakote and discontinue it completely. Patient's is refusing to allow this to be given and dosing was discussed with pharmacy it was determined that this was safe to discontinue at this point as patient does not have a seizure history. Seroquel will be changed to Risperdal 0.5 mg at bedtime. Discharge plan will be to return to [facility] with [facility] in place. 06/13: MRI of the brain showed no evidence of acute or subacute process. Mild mckeon ventriculomegaly pattern noted. Patient has been evaluated by psychiatry for delirium likely toxic metabolic, history of dementia. He recommended avoiding narcotics, SLEEP TECHNOLOGIST sedatives, limit anticholinergic medications when possible, frequent reorientation, minimize use of restraints, open window shades during the day and close at night. Depakote discontinued as it may be contributing to tremors and sedation. Risperdal was changed to 0.25 daily at bedtime when necessary for agitation only and psychiatry has signed off. Discussed patient's condition in detail with his son. We will also discontinue Aricept and Namenda. Patient failed swallow evaluation is currently nothing by mouth with plan for reevaluation in the morning and possible modified barium swallow. The patient's son relates that since patient has been at the [facility] for about 2-3 months, he has had continuous decline in his condition. He is unable to walk with a walker and unable to complete his ADLs. Patient will require wheelchair. He also has significant tremor that was initially thought to be related to medication ef fect, we didn't discontinue Depakote and patient continues to have tremor which is most likely secondary to dementia. We will plan for monitoring overnight and speech will reevaluate swallowing. Probable discharge tomorrow. Objective - Vital Signs Vital signs: Vital Signs Temp 97.5 F L 06/13/19 05:00 Pulse 65 06/13/19 05:00 Resp 16 06/13/19 05:00 BP 149/75 06/13/19 05:00 Pulse Ox 95 06/13/19 05:00 Intake & Output 06/12/19 06/13/19 06/13/19 18:59 06:59 18:59 Intake Total 0 Balance 0 Weight 94.5 kg Intake: Oral 0 Other: Voiding Method Diaper Diaper Diaper Incontinent Incontinent Incontinent # Voids 2 1 - Exam Review of systems: Cannot be obtained due to patient's mental status - Constitutional General appearance un cooperative appears anxious, no acute distress, obese - EENT Eyes: anicteric sclerae, PERRLA, normal appearance ENT: hearing grossly normal for had has a bruise in the right - Neck Neck: no lymphadenopathy, normal ROM, no other, no rigidity, no stridor, no thyromegaly - Respiratory Respiratory: bilateral: CTA, negative: diminished, dullness, rales, rhonchi - Cardiovascular Rhythm: regular Heart sounds: normal: S1, S2 Abnormal Heart Sounds: no systolic murmur, no diastolic murmur, no rub, no S3 Gallop, no S4 Gallop, no click, no other - Gastrointestinal General gastrointestinal: normal bowel sounds, soft - Integumentary Integumentary: Bruise on forehead and right knee - Neurologic Neurologic: Resting tremor noted with pain rolling movement CNII-XII intact no sensory deficit coordination could not be assessed gait cannot be assessed - Musculoskeletal Musculoskeletal: Bilateral lower extremity weakness 3+/5 - Psychiatric Psychiatric: Patient is quiet, he opens eyes to verbal stimuli, alert and oriented 1, generalized weakness - Labs CBC & Chem 7: 06/12/19 07:22 06/12/19 07:22 Assessment and Plan Plan: 1. Metabolic encephalopathy possibly secondary to delirium from dementia and insomnia secondary to Depakote. Neurology consult appreciated. Medication adjustments will be made and Depakote will be discontinued, Seroquel discontinued, start Risperdal 0.5 mg at bedtime and discontinue Haldol. Subsequently, psychiatry recommended decreasing Risperdal 0.25 mg at bedtime as needed for agitation which will be done. 2. Atrial fibrillation, chronic, not on anticoagulation due to risk for falls. 3. Benign prostatic hypertrophy. Continue Flomax 0.8 mg daily. 4. Alzheimer's dementia. Aricept and Namenda will be discontinued. 5. History of obstructive sleep apnea. 6. GI prophylaxis. Pepcid. 7. DVT prophylaxis. Lovenox. 8. Stage II decubitus ulcer right buttocks, abrasion right scalp, left hand, all present on admission.. 9. Dysphagia. Speech therapy is following and he is currently nothing by mouth. He may undergo modified barium swallow in the morning. Discharge plan: Return to [facility] with [facility]. We will plan to order a wheelchair for the patient as he is unable to perform ADLs and standing position. He is unable to utilize walker at this point. He does have a significant tremor that is making it difficult for him to stand and ambulate with walker. Impression and plan of care have been directed as dictated by the signing physician. Tamica Iraheta nurse practitioner acting as scribe for signing physician.
[2019-06-14] MEDS: SODIUM CHLORIDE 0.9% 1,000 ML IV SCH ×2 (04:51→14:47)
[2019-06-14 05:09] VITALS: TEMP 97.7
--- NOTE | 2019-06-14 07:04 | ECHOF ---
Referral Reason:Hx of a.fib and concern for stroke MEASUREMENTS -------- HEIGHT: 182.9 cm WEIGHT: 94.3 kg BP: RVIDd: 3.5 cm (< 3.3) IVSd: 2.0 cm (0.6 - 1.1) LVIDd: 3.6 cm (3.9 - 5.3) LVPWd: 1.9 cm (0.6 - 1.1) IVSs: 2.4 cm LVIDs: 2.3 cm LVPWs: 1.9 cm LAESV Index (A-L): 25.74 ml/m Ao Diam: 3.6 cm (2.0 - 3.7) AV Cusp: 0.9 cm (1.5 - 2.6) LA Diam: 3.2 cm (2.7 - 3.8) MV E Geovany: 0.89 m/s MV DecT: 243 ms MV A Geovany: 1.22 m/s MV E/A Ratio: 0.73 AV maxP.92 mmHg AV meanP.78 mmHg FINDINGS -------- Sinus rhythm. This was a technically difficult study with suboptimal apical views. The left ventricular size is normal. There is severe concentric left ventricular hypertrophy. Ove rall left ventricular systolic function is normal with, an EF between 60 - 65 %. The diastolic fill ing pattern indicates impaired relaxation 16.06. The right ventricle is mildly enlarged. Normal LA size by volume 22+/-6 ml/m2. The right atrium was not well visualized. Lumason used Interatrial and interventricular septum intact. There is no evidence of aortic regurgitation. There is mild aortic stenosis present. Peak/mean gr adient across the Aortic Valve is 32.92mmHg / 18.78mmHg. Mild mitral annular calcification present. Mild mitral regurgitation is present. Mild tricuspid regurgitation present. There is no evidence of pulmonary hypertension. The right v entricular systolic pressure, as measured by Doppler, is {RVSP}. There is no pulmonic regurgitation present. The aortic root size is normal. IVC Not well visulized. There is no pericardial effusion. CONCLUSIONS -------- 1. Sinus rhythm. 2. This was a technically difficult study with suboptimal apical views. 3. The left ventricular size is normal. 4. There is severe concentric left ventricular hypertrophy. 5. Overall left ventricular systolic function is normal with, an EF between 60 - 65 %. 6. The right ventricle is mildly enlarged. 7. Normal LA size by volume 22+/-6 ml/m2. 8. The right atrium was not well visualized. 9. Lumason used 10. Interatrial and interventricular septum intact. 11. There is no evidence of aortic regurgitation. 12. There is mild aortic stenosis present. 13. Peak/mean gradient across the Aortic Valve is 32.92mmHg / 18.78mmHg. 14. Mild mitral annular calcification present. 15. Mild mitral regurgitation is present. 16. Mild tricuspid regurgitation present. 17. There is no evidence of pulmonary hypertension. 18. The right ventricular systolic pressure, as measured by Doppler, is {RVSP}. 19. There is no pulmonic regurgitation present. 20. The aortic root size is normal. 21. IVC Not well visulized. 22. There is no pericardial effusion. TENON MACHINE OPERATOR: Patsy Ratliff RDCS
--- NOTE | 2019-06-14 12:24 | FL ---
Modified barium swallow. HISTORY: Dysphagia. Modified barium swallow was performed with the department of speech pathology. The patient was prese nted with various consistencies of barium. There is no evidence for aspiration or penetration. Full report is to follow from the department of speech pathology. Impression: Normal study.
[2019-06-14 12:41] VITALS: BP 106/60; PULSE 82; RESP 22
[2019-06-14] MEDS: DOCUSATE 100 MG CAP PO SCH (13:24)
[2019-06-14] MEDS: HEPARIN SODIUM,PORCINE 5,000 UNIT/ML 1 ML VIAL SQ SCH (13:26)
[2019-06-14] MEDS: CHOLECALCIFEROL 1,000 UNIT TAB PO SCH (13:28)
[2019-06-14] MEDS: TAMSULOSIN 0.4 MG CAP.ER.24H PO SCH (13:28)
[2019-06-14] MEDS: CYANOCOBALAMIN 500 MCG TAB PO SCH (13:28)
== END 2019-06-14 16:40 | disposition home health service (06) | DRG 71 ==
LOC: EC 10:46 → 1SOBS 12:08 → 3NMEDONC 13:21 → OBSVTOIN 06-13 14:53
PROVIDERS: ADMIT Internal Medicine; ATTEND Internal Medicine
DX: G93.41 Metabolic encephalopathy (principal); F02.81 Dementia in other diseases classified elsewhere, unspecified severity, with behavioral disturbance; F05 Delirium due to known physiological condition; F17.210 Nicotine dependence, cigarettes, uncomplicated; F31.9 Bipolar disorder, unspecified; G20 Parkinson's disease; G30.9 Alzheimer's disease, unspecified; G47.33 Obstructive sleep apnea (adult) (pediatric); H91.90 Unspecified hearing loss, unspecified ear; I48.2 Chronic atrial fibrillation; L89.312 Pressure ulcer of right buttock, stage 2; N40.0 Benign prostatic hyperplasia without lower urinary tract symptoms; R29.6 Repeated falls; R32 Unspecified urinary incontinence; R15.9 Full incontinence of feces; Z66 Do not resuscitate; Z79.899 Other long term (current) drug therapy; Z86.79 Personal history of other diseases of the circulatory system; Z91.81 History of falling; W20.8XXA Other cause of strike by thrown, projected or falling object, initial encounter; Y92.092 Bedroom in other non-institutional residence as the place of occurrence of the external cause; R13.10 Dysphagia, unspecified; S00.01XA Abrasion of scalp, initial encounter; S60.512A Abrasion of left hand, initial encounter; T42.6X5A Adverse effect of other antiepileptic and sedative-hypnotic drugs, initial encounter; M19.90 Unspecified osteoarthritis, unspecified site
CPT/HCPCS: 36415; 70551; 71045; 74230; 80048; 80053; 80061; 82550; 83036; 83605; 83735; 84100; 84439; 84443; 84481; 84484; 85025; 85610; 85730; 93005; 93306; 99285